=== PATIENT | female | born 1985 | race Caucasian/White ===

== ENCOUNTER 2016-09-26 06:28 | Emergency (ER) | payer SELFPAY ==
[~2016-09-26] VITALS: Ht 177.8 cm; Wt 131.0 kg
[~2016-09-26 06:28] MED LIST: LORTA5 PO
[2016-09-26 06:31] VITALS: BP 140/73; PULSE 90; RESP 16; TEMP 97.8; O2SAT 98
[2016-09-26] MEDS ORDERED: IBUP-232 PO (07:11)
[2016-09-26] MEDS ORDERED: BACT800T5 PO (07:11)
--- NOTE | 2016-09-26 07:11 | PD ---
HPI Chief Complaint: Allergic/Adverse Reaction Time Seen by Provider: 06:50 Travel History International Travel<30 days: No Contact w/Intl Traveler<30days: No Traveled to known affect area: No History of Present Illness HPI The patient is a 31-year-old female who presents to the emergency department for 4 days of swelling over the right nipple. The patient states the right nipple is been tender, swollen, erythematous, with mild drainage for the last 4 days. She denies any trauma to the affected area, does note a nipple piercing which is been in place for several years. She denies any fever , chills, or sweats. She denies any trauma to the right breast and denies any history of fibrocystic breast disease or cancer. The patient does not currently have a primary physician. She denies any history of immunocompromising diseases or previous history of MRSA. Symptoms are moderate , there are no known alleviating or exacerbating factors. PFSH Past Medical History Anemia: Yes Depression: Yes Diminished Hearing: No Headaches: Yes Immunizations Current: Yes Pneumonia: Yes Tetanus Vaccination: Unknown Influenza Vaccination: No ?: Not LMP: 09/19/16 : 2 Para: 2 Past Surgical History Abdominal Surgery: Yes (C/SEC) Section: Yes (09/16/13) Social History Alcohol Use: No Tobacco Use: No Substance Use: Yes (MARIJUANA USE IN PAST) Allergies-Medications (Allergen,Severity, Reaction): Coded Allergies: Zofran (Verified Allergy, Severe, Nausea/Vomiting, 09/26/16) Reported Meds & Prescriptions Reported Meds & Active Scripts Active No Active Prescriptions or Reported Medications Review of Systems Except as stated in HPI: all other systems reviewed are Neg General / Constitutional: No: Fever, Chills Cardiovascular: No: Chest Pain or Discomfort Respiratory: No: Shortness of Breath Gastrointestinal: No: Nausea, Vomiting Skin: Positive Breast Lumps, Positive Breast Tenderness, Positive Breast Swelling Endocrine: No: Other (denies any history diabetes) Hematologic/Lymphatic: No: Other (denies any history of HIV) Physical Exam Narrative GENERAL: Awake, alert, 31-year-old female who appears her stated age and is in no acute respiratory distress. SKIN: Warm and dry. HEAD: Atraumatic. Normocephalic. EYES: No injection or drainage. ENT: No nasal bleeding or discharge. Mucous membranes pink and moist. NECK: Trachea midline. No JVD. Breast: Exam was performed in the presence of a female nurse, Mirian. The right breast does have a nipple piercing in place. The right nipple is slightly swollen comparison to the left with a 1.5 cm area of swelling that is erythematous, no obvious underlying fluctuance, but area is tender. No drainage is expressed from the nipple. No significant underlying induration noted under the nipple. MUSCULOSKELETAL: No obvious deformities. No clubbing. No cyanosis. No edema. NEUROLOGICAL: Awake and alert. No obvious cranial nerve deficits. Motor grossly within normal limits. Normal speech. PSYCHIATRIC: Appropriate mood and affect; insight and judgment normal. Data Data Last Documented VS Vital Signs Date Time Temp Pulse Resp B/P Pulse Ox O2 Delivery O2 Flow Rate FiO2 09/26/16 06:46 16 09/26/16 06:31 97.8 90 140/73 98 Room Air Orders Sulfamet-Trimeth Ds 800-160 Mg (Bactrim (09/26/16 07:15) Ibuprofen (Motrin) (09/26/16 07:15) [facility] Medical Decision Making Medical Screen Exam Complete: Yes Emergency Medical Condition: Yes Medical Record Reviewed: Yes Differential Diagnosis Differential diagnosis includes abscess, cellulitis, mastitis, ductal hyperplasia, breast ductal infection. Narrative Course The patient will be treated conservatively as it is over the nipple, therefore, no incision and drainage was performed. The patient we placed on Bactrim, warm compresses, and ibuprofen. She is advised to follow-up with a general surgeon if symptoms persist as it does affect the nipple. Patient agrees and understands. The patient was provided her first dose of Bactrim and ibuprofen in the emergency department. Diagnosis Primary Impression: Mastalgia Additional Impression: Abscess Patient Instructions: General Instructions Additional Instructions: Medications as directed. Follow-up with general surgery symptoms persist as it does affect the nipple. Warm compresses with a warm washcloth multiple times daily. Monitor for drainage. Return for increasing symptoms or fever. Med/Other Pt SpecificInfo: Prescription(s) given Scripts Ibuprofen 600 Mg [id number] Mg PO Q6H PRN (Pain/Inflammation) #20 TAB Ref 0 Prov:Joaquin Pickard MD 09/26/16 Sulfamethoxazole-Trimethoprim (Bactrim DS)800-160 Mg Tab1 Tab PO BID #20 TAB Ref 0 Prov:Joaquin Pickard MD 09/26/16 Disposition: 01 DISCHARGE HOME Condition: Stable Joaquin Pickard MD Sep 26, 2016 07:11
[2016-09-26] MEDS ORDERED: SULFAMETHOXAZOLE-TRIMETHOPRIM DS 800-160 MG TAB PO ONE (07:15)
[2016-09-26] MEDS ORDERED: IBUPROFEN 800 MG TAB PO ONE (07:15)
== END 2016-09-26 07:45 | disposition home or self-care (01) ==
LOC: NEPC 06:28
DX: N64.4 Mastodynia (principal)
CPT/HCPCS: 99283

== ENCOUNTER 2016-12-28 13:50 | Emergency (ER) | payer SELFPAY ==
[~2016-12-28] VITALS: Ht 177.8 cm; Wt 133.0 kg
[~2016-12-28 13:50] MED LIST changes: +BACT800T5 PO; +IBUP-232 PO; -LORTA5 PO
[2016-12-28 13:56] VITALS: BP 147/84; PULSE 90; RESP 16; TEMP 98.1; O2SAT 97
--- NOTE | 2016-12-28 14:25 | PD ---
HPI Chief Complaint: Musculoskeletal Complaint Time Seen by Provider: 14:00 Travel History International Travel<30 days: No Contact w/Intl Traveler<30days: No Traveled to known affect area: No History of Present Illness HPI 31-year-old female presents to the emergency room for evaluation of left lateral foot pain after injuring her foot earlier today. Patient states she slipped on water and slammed her foot into a rack at work. She had immediate pain. Pain is severe and constant but worse with ambulation and range of motion. She tried to continue working but was unable to. Patient came straight to the emergency room from work and has not taken anything for her symptoms. Denies paresthesias. Pain radiates up her left leg. Denies chronic medical conditions or daily medications. PFSH Past Medical History Anemia: Yes Depression: Yes Diminished Hearing: No Headaches: Yes Immunizations Current: Yes Pneumonia: Yes ?: Not : 2 Para: 2 Tubal Ligation: Yes Past Surgical History Abdominal Surgery: Yes (C/SEC) Section: Yes (09/16/13) Social History Alcohol Use: No Tobacco Use: No Substance Use: Yes (MARIJUANA USE IN PAST) Allergies-Medications (Allergen,Severity, Reaction): Coded Allergies: Zofran (Verified Allergy, Severe, Nausea/Vomiting, 12/28/16) Reported Meds & Prescriptions Reported Meds & Active Scripts Active Ibuprofen 600 Mg Tab 600 Mg PO Q6H PRN Bactrim DS (Sulfamethoxazole-Trimethoprim) 800-160 Mg Tab 1 Tab PO BID Review of Systems Except as stated in HPI: all other systems reviewed are Neg Physical Exam Narrative GENERAL: Well-nourished, well-developed female in no acute distress. Afebrile. Ambulatory. SKIN: Focused skin assessment warm/dry. No erythema or ecchymosis. HEAD: Normocephalic. EYES: No scleral icterus. No injection or drainage. NECK: Supple, trachea midline. No JVD or lymphadenopathy. CARDIOVASCULAR: Regular rate and rhythm without murmurs, gallops, or rubs. RESPIRATORY: Breath sounds equal bilaterally. No accessory muscle use. EXTREMITY: Left ventilation equipment tender to palpation over the base of the fifth metatarsal. Full range of motion of the foot. No edema noted. 2+ dorsalis pedis pulse. Intact distal sensation. Data Data Last Documented VS Vital Signs Date Time Temp Pulse Resp B/P Pulse Ox O2 Delivery O2 Flow Rate FiO2 12/28/16 13:56 98.1 90 16 147/84 97 Orders Foot, Complete ([id number]) (12/28/16 ) ^ Morro Bandage (12/28/16 15:24) MDM Medical Decision Making Medical Screen Exam Complete: Yes Emergency Medical Condition: Yes Medical Record Reviewed: Yes Differential Diagnosis Contusion, sprain, strain, fracture Narrative Course 31-year-old female presents to the emergency room for evaluation of left lateral after slipping at work earlier today. Patient slammed her foot into a rack. Left foot is neurovascularly intact with 2+ dorsalis pedis pulse. Full range of motion. No erythema, ecchymosis, or edema. X-ray is negative. Patient placed in Morro wrap. Discharged with orthopedic instructions and told to follow up with primary care physician as needed or return for worsening symptoms. She understands and agrees to plan. Diagnosis Primary Impression: Contusion of left foot Qualified Code: S90.32XA - Contusion of left foot, initial encounter Referrals: Primary Care Physician Patient Instructions: Contusion in Adults (ED), General Instructions Additional Instructions: Rest and drink plenty of fluids. Use Morro wrap as needed. Take ibuprofen with food as directed, as needed for pain. Apply ice to the affected area for 20 minutes at a time, as needed for pain and swelling. Follow-up with a primary care physician. Return to the emergency room for worsening symptoms. Med/Other Pt SpecificInfo: Prescription(s) given Disposition: 01 DISCHARGE HOME Condition: Stable Rossana Mercedes Dec 28, 2016 14:24
--- NOTE | 2016-12-28 15:21 | RADHPO ---
EXAM DATE/TIME: 12/28/2016 14:17 [facility] COMPARISON: No previous studies available for comparison. INDICATIONS : Patient slipped and fell in the cooler at work last night. MEDICAL HISTORY : None. SURGICAL HISTORY : None. ENCOUNTER: Initial ACUITY: 1 day PAIN SCORE: 9/10 LOCATION: Left Lateral foot. FINDINGS: There is no acute fracture or dislocation of the left foot. Plantar and Achilles calcaneal spurs are noted. CONCLUSION: 1. No acute fracture or dislocation. 2. Plantar and Achilles calcaneal spurs Jared Linton MD on December 28, 2016 at 15:17 Board Certified Radiologist. This report was verified electronically.
== END 2016-12-28 15:37 | disposition home or self-care (01) ==
LOC: PHEFT 13:50
DX: S90.32XA Contusion of left foot, initial encounter (principal); W01.198A Fall on same level from slipping, tripping and stumbling with subsequent striking against other object, initial encounter; Y99.0 Civilian activity done for income or pay
CPT/HCPCS: 73630; 99283